=== PATIENT | female | born 1985 | race Caucasian/White ===

== ENCOUNTER → 2016-05-01 | Outpatient (CLI) | payer BC | LOC: RAD 14:21 | PROVIDERS: ATTEND Obstetrics & Gynecology | DX: N97.9 Female infertility, unspecified (principal) | CPT/HCPCS: 58340; 74740 ==

== ENCOUNTER → 2017-06-15 | Outpatient (CLI) | payer BC | LOC: OD 15:26 | PROVIDERS: ATTEND Nurse Practitioner Primary Care | DX: N97.9 Female infertility, unspecified (principal); N91.2 Amenorrhea, unspecified | CPT/HCPCS: 36415; 84702 ==

== ENCOUNTER → 2017-10-19 | Outpatient (CLI) | payer BC | LOC: OD 10:58 | PROVIDERS: ATTEND Nurse Practitioner Primary Care | DX: N97.9 Female infertility, unspecified (principal) | CPT/HCPCS: 36415; 84702 ==